=== PATIENT | female | born 1965 | race Two or more races ===

== ENCOUNTER 2016-10-02 08:48 | Emergency (ER) | payer BC ==
[~2016-10-02] VITALS: Ht 167.6 cm; Wt 77.0 kg
[2016-10-02] MEDS ORDERED: CITA10TA69 PO (08:54)
[2016-10-02] MEDS ORDERED: DIPHENHYDRAMINE 50MG/ML VIAL IV ONE (10:15)
[2016-10-02] MEDS ORDERED: SODIUM CHLORIDE 0.9% 1,000 ML IV ONE (10:15)
[2016-10-02] MEDS ORDERED: KETOROLAC 30MG/ML VIAL IV ONE (10:15)
[2016-10-02 10:53] VITALS: BP 132/83
== END 2016-10-02 11:35 | disposition home or self-care (01) ==
LOC: ER 09:30
DX: R51 Headache (principal); R11.2 Nausea with vomiting, unspecified; Z79.899 Other long term (current) drug therapy
CPT/HCPCS: 70450; 81025; 96361; 96374; 96375; 99284; J1200; J1885; J7030; Z7610